=== PATIENT | female | born 1970 | race Caucasian/White ===

== ENCOUNTER 2017-03-27 04:40 | Emergency (ER) | payer MEDICARE, MEDICAID ==
[~2017-03-27] VITALS: Ht 165.1 cm; Wt 90.9 kg
[2017-03-27] MEDS ORDERED: DIAZ10 PO (04:53)
[2017-03-27] MEDS ORDERED: FLUO-191 PO (04:53)
[2017-03-27] MEDS ORDERED: ARIP15TA2 PO (04:53)
[2017-03-27 06:34] VITALS: BP 127/65
== END 2017-03-27 06:36 | disposition home or self-care (01) ==
LOC: EMS 04:43
DX: F20.9 Schizophrenia, unspecified (principal); F41.9 Anxiety disorder, unspecified; F31.9 Bipolar disorder, unspecified; F17.210 Nicotine dependence, cigarettes, uncomplicated; Z88.0 Allergy status to penicillin
CPT/HCPCS: 99284

== ENCOUNTER 2020-01-24 15:46 | Inpatient (IN) | payer MEDICARE, MEDICAID ==
[~2020-01-24] VITALS: Ht 172.7 cm; Wt 131.9 kg
[~2020-01-24 15:46] MED LIST: ARIP15TA2 PO; DIAZ10 PO; FLUO-191 PO
[2020-01-24 17:50] LABS: BASOPHILS % (AUTO) 0.6 % (0.0-2.0); EOSINOPHILS % (AUTO) 0.3 % (1.0-6.0); HEMATOCRIT 40.2 % (36-46); HEMOGLOBIN 13.2 g/dL (12.0-16.0); LYMPHOCYTES # (AUTO) 1.6 K/uL (1.0-4.8); LYMPHOCYTES % (AUTO) 21.2 % (22.0-44.0); MEAN CORPUSCULAR HEMOGLOBIN 28.8 pg (26.0-34.0); MEAN CORPUSCULAR HGB CONC 32.7 G/dL (31.0-37.0); MEAN CORPUSCULAR VOLUME 88 fL (80-100); MONOCYTES # (AUTO) 0.4 K/uL (0.1-1.0); MONOCYTES % (AUTO) 5.6 % (2.0-9.0); NEUTROPHILS # (AUTO) 5.5 K/uL (1.8-7.7); NEUTROPHILS % (AUTO) 72.3 % (40.0-70.0); PLATELET COUNT (AUTO) 285 K/uL (150-450); RED BLOOD CELL COUNT(AUTO) 4.56 MIL/uL (4.00-5.20); RED CELL DISTRIBUTION WIDTH 13.6 % (11.5-14.5)
[2020-01-24 18:10] LABS: ANION GAP 12 mmol/L (8-16); CALCIUM, TOTAL 9.9 mg/dL (8.8-10.5); CARBON DIOXIDE 25 mmol/L (22-29); CHLORIDE 110 mmol/L (98-107); CREATININE 1.51 mg/dL (0.60-1.30); GLOMERULAR FILTR. RATE CALC 37 mL/min (>60); GLUCOSE,RANDOM 145 mg/dL (70-110); POTASSIUM 3.8 mmol/L (3.5-5.1); SODIUM SERUM 147 mmol/L (136-145); UREA NITROGEN, BLOOD 17 mg/dL (7-18)
[2020-01-24 18:15] LABS: ALANINE AMINOTRANSFERASE 28 U/L (12-78); ALBUMIN 3.8 g/dL (3.4-5.0); ALKALINE PHOSPHATASE 85 U/L (46-116); ASPARTATE AMINOTRANSFERASE 22 U/L (15-37); TOTAL PROTEIN, SERUM 7.7 g/dL (6.4-8.2)
[2020-01-24] MEDS ORDERED: HydrOXYzine PAMOATE 50 MG CAPSULE PO PRN (19:00)
[2020-01-24] MEDS ORDERED: TUBERCULIN, PURIFIED PROTEIN DERIVATIVE 5 TU/0.1 ML SYRINGE ID ONE (19:00)
[2020-01-24] MEDS ORDERED: LOPERAMIDE HCL 2 MG CAPSULE PO PRN (19:00)
[2020-01-24] MEDS ORDERED: PROMETHAZINE HCL 25 MG TABLET PO PRN (19:00)
[2020-01-24] MEDS ORDERED: MAG HYDROX/AL HYDROX/SIMETH ES 30 ML SUSPENSION UDCUP PO PRN (19:00)
[2020-01-24] MEDS ORDERED: ZOLPIDEM TARTRATE 10 MG TABLET PO PRN (19:00)
[2020-01-24] MEDS ORDERED: OLANZapine 5 MG RAPDIS TABLET PO PRN (19:00)
[2020-01-24] MEDS ORDERED: ACETAMINOPHEN 325 MG TABLET PO PRN (19:00)
[2020-01-24] MEDS ORDERED: MAGNESIUM HYDROXIDE SUSPENSION 30 ML UDCUP PO PRN (19:00)
[2020-01-24] MEDS ORDERED: GuaiFENesin/D-METHORPHAN [SUGAR-FREE] 200-20MG/10 ML SYRUP UDCUP PO PRN (19:00)
[2020-01-24 19:34] LABS: COVID AG,FIA SOURCE NASOPHARYNGEAL
[2020-01-24 19:37] LABS: HCG,QUANTITATIVE 6 mIU/mL (0-6)
[2020-01-24] MEDS ORDERED: OLANZapine 5 MG RAPDIS TABLET PO SCH (21:00)
[2020-01-24] MEDS: THIAMINE 100 MG TABLET PO SCH (21:00)
[2020-01-24] MEDS: LORazepam 2 MG TABLET PO PRN (22:11)
[2020-01-25 03:27] VITALS: BP 112/85
[2020-01-25 07:31] LABS: CHOLESTEROL 138 mg/dL (131-200); FREE T4 (FREE THYROXINE) 1.56 ng/dL (0.76-1.46); HDL CHOLESTEROL 46 mg/dL (40-60); LDL CHOL (CALC.) 81 mg/dL (0-130); THYROID STIMULATING HORMONE 2.94 uIU/mL (0.36-3.74); TRIGLYCERIDES 54 mg/dL (15-150)
[2020-01-25 07:36] LABS: HEMOGLOBIN A1C 5.9 % (3.8-5.6)
[2020-01-25] MEDS: FOLIC ACID 1 MG TABLET PO SCH ×2 (09:00→09:19)
[2020-01-25] MEDS: FLUoxetine HCL 20 MG CAPSULE PO SCH ×2 (09:00→09:19)
[2020-01-25] MEDS: THIAMINE 100 MG TABLET PO SCH ×2 (09:00→16:37)
[2020-01-25] MEDS: OMEGA-3/DHA/EPA/FISH OIL 1,000 MG CAPSULE PO SCH ×2 (09:00→09:19)
[2020-01-25] MEDS: MULTIVITAMINS WITH MINERALS, THERAPEUTIC TABLET PO SCH ×2 (09:00→09:19)
[2020-01-25] MEDS ORDERED: PALIPERIDONE 1.5 MG ER TABLET PO PRN (10:30)
[2020-01-25] MEDS ORDERED: PALIPERIDONE PALMITATE 234 MG/1.5 ML SYRINGE IM ONE (10:30)
[2020-01-25 17:07] VITALS: BP 107/65
[2020-01-25] MEDS: LORazepam 2 MG TABLET PO PRN (18:40)
[2020-01-25] MEDS ORDERED: PALIPERIDONE 3 MG ER TABLET PO SCH (21:00)
[2020-01-26 08:00] VITALS: BP 109/87
[2020-01-26] MEDS: OMEGA-3/DHA/EPA/FISH OIL 1,000 MG CAPSULE PO SCH (08:17)
[2020-01-26] MEDS: FOLIC ACID 1 MG TABLET PO SCH (08:17)
[2020-01-26] MEDS: MULTIVITAMINS WITH MINERALS, THERAPEUTIC TABLET PO SCH (08:18)
[2020-01-26] MEDS: THIAMINE 100 MG TABLET PO SCH ×2 (08:18→17:00)
[2020-01-26] MEDS: FLUoxetine HCL 20 MG CAPSULE PO SCH (08:18)
[2020-01-26] MEDS: NALTREXONE HCL 50 MG TABLET PO SCH (08:18)
[2020-01-26 16:32] VITALS: BP 145/90
[2020-01-26] MEDS: LORazepam 2 MG TABLET PO PRN (22:07)
[2020-01-27 08:50] VITALS: BP 102/61
[2020-01-27] MEDS: MULTIVITAMINS WITH MINERALS, THERAPEUTIC TABLET PO SCH (09:00)
[2020-01-27] MEDS: NALTREXONE HCL 50 MG TABLET PO SCH (09:00)
[2020-01-27] MEDS: FOLIC ACID 1 MG TABLET PO SCH (09:00)
[2020-01-27] MEDS: THIAMINE 100 MG TABLET PO SCH ×2 (09:00→16:42)
[2020-01-27] MEDS: OMEGA-3/DHA/EPA/FISH OIL 1,000 MG CAPSULE PO SCH (09:00)
[2020-01-27] MEDS: FLUoxetine HCL 20 MG CAPSULE PO SCH (09:00)
[2020-01-27 16:06] VITALS: BP 124/78
[2020-01-27] MEDS: LORazepam 2 MG TABLET PO PRN (22:01)
[2020-01-28 08:00] VITALS: BP 125/80
[2020-01-28] MEDS: FLUoxetine HCL 20 MG CAPSULE PO SCH (09:00)
[2020-01-28] MEDS: FOLIC ACID 1 MG TABLET PO SCH (09:00)
[2020-01-28] MEDS: THIAMINE 100 MG TABLET PO SCH ×2 (09:00→16:11)
[2020-01-28] MEDS: OMEGA-3/DHA/EPA/FISH OIL 1,000 MG CAPSULE PO SCH (09:00)
[2020-01-28] MEDS: NALTREXONE HCL 50 MG TABLET PO SCH (09:00)
[2020-01-28] MEDS: MULTIVITAMINS WITH MINERALS, THERAPEUTIC TABLET PO SCH (09:00)
[2020-01-28 16:00] VITALS: BP 144/88
[2020-01-28] MEDS: LORazepam 2 MG TABLET PO PRN (20:21)
[2020-01-29 08:38] VITALS: BP 137/81
[2020-01-29] MEDS: FLUoxetine HCL 20 MG CAPSULE PO SCH (09:00)
[2020-01-29] MEDS ORDERED: PALIPERIDONE PALMITATE 156 MG/ML SYRINGE IM ONE (09:00)
[2020-01-29] MEDS: OMEGA-3/DHA/EPA/FISH OIL 1,000 MG CAPSULE PO SCH (09:00)
[2020-01-29] MEDS: MULTIVITAMINS WITH MINERALS, THERAPEUTIC TABLET PO SCH (09:00)
[2020-01-29] MEDS: NALTREXONE HCL 50 MG TABLET PO SCH (09:00)
[2020-01-29] MEDS: FOLIC ACID 1 MG TABLET PO SCH (09:00)
[2020-01-29] MEDS: THIAMINE 100 MG TABLET PO SCH ×2 (09:00→16:09)
[2020-01-29 10:22] LABS: ALANINE AMINOTRANSFERASE 35 U/L (12-78); ALBUMIN 3.4 g/dL (3.4-5.0); ALKALINE PHOSPHATASE 75 U/L (46-116); ANION GAP 7 mmol/L (8-16); ASPARTATE AMINOTRANSFERASE 27 U/L (15-37); BILIRUBIN,TOTAL 0.8 mg/dL (0.1-1.0); CALCIUM, TOTAL 8.7 mg/dL (8.8-10.5); CARBON DIOXIDE 29 mmol/L (22-29); CHLORIDE 103 mmol/L (98-107); CREATINE KINASE, TOTAL ONLY 99 U/L (26-192); CREATININE 0.96 mg/dL (0.60-1.30); GLOMERULAR FILTR. RATE CALC > 60 mL/min (>60); GLUCOSE,RANDOM 84 mg/dL (70-110); POTASSIUM 3.9 mmol/L (3.5-5.1); SODIUM SERUM 139 mmol/L (136-145); TOTAL PROTEIN, SERUM 6.8 g/dL (6.4-8.2); UREA NITROGEN, BLOOD 13 mg/dL (7-18)
[2020-01-29 16:16] VITALS: BP 124/86
[2020-01-29] MEDS: LORazepam 2 MG TABLET PO PRN (23:31)
[2020-01-30] MEDS: FOLIC ACID 1 MG TABLET PO SCH (07:55)
[2020-01-30] MEDS: OMEGA-3/DHA/EPA/FISH OIL 1,000 MG CAPSULE PO SCH (07:55)
[2020-01-30] MEDS: MULTIVITAMINS WITH MINERALS, THERAPEUTIC TABLET PO SCH (07:56)
[2020-01-30] MEDS: NALTREXONE HCL 50 MG TABLET PO SCH (07:56)
[2020-01-30] MEDS: THIAMINE 100 MG TABLET PO SCH ×2 (07:56→16:07)
[2020-01-30] MEDS: FLUoxetine HCL 20 MG CAPSULE PO SCH (07:56)
[2020-01-30 08:43] VITALS: BP 124/75
[2020-01-30 16:17] VITALS: BP 129/86
[2020-01-31] MEDS: LORazepam 2 MG TABLET PO PRN (01:05)
[2020-01-31 08:00] VITALS: BP 137/87
[2020-01-31] MEDS: OMEGA-3/DHA/EPA/FISH OIL 1,000 MG CAPSULE PO SCH (09:00)
[2020-01-31] MEDS: NALTREXONE HCL 50 MG TABLET PO SCH (09:00)
[2020-01-31] MEDS: FOLIC ACID 1 MG TABLET PO SCH (09:00)
[2020-01-31] MEDS: MULTIVITAMINS WITH MINERALS, THERAPEUTIC TABLET PO SCH (09:00)
[2020-01-31] MEDS: FLUoxetine HCL 20 MG CAPSULE PO SCH (09:00)
[2020-01-31] MEDS: THIAMINE 100 MG TABLET PO SCH (09:00)
[2020-01-31] MEDS ORDERED: NALT50TA PO (09:52)
[2020-01-31] MEDS ORDERED: PALI117D IM (09:52)
[2020-01-31] MEDS ORDERED: FLUO-191 PO (09:52)
[2020-01-31] MEDS ORDERED: OMEG-135 PO (09:52)
== END 2020-01-31 16:00 | disposition left against medical advice (07) | DRG 885 ==
LOC: EMS 16:12 → 3EC 18:54
PROVIDERS: ADMIT Psychiatry & Neurology Psychiatry; ATTEND Psychiatry & Neurology Psychiatry
DX: F25.9 Schizoaffective disorder, unspecified (principal); N18.9 Chronic kidney disease, unspecified; E87.0 Hyperosmolality and hypernatremia; Z68.41 Body mass index [BMI] 40.0-44.9, adult; E11.22 Type 2 diabetes mellitus with diabetic chronic kidney disease; E78.5 Hyperlipidemia, unspecified; E86.0 Dehydration; F41.9 Anxiety disorder, unspecified; F31.9 Bipolar disorder, unspecified; J44.9 Chronic obstructive pulmonary disease, unspecified; E66.9 Obesity, unspecified; Z20.828 Contact with and (suspected) exposure to other viral communicable diseases; F17.210 Nicotine dependence, cigarettes, uncomplicated; Z91.5 Personal history of self-harm; Z88.0 Allergy status to penicillin; Z79.899 Other long term (current) drug therapy
CPT/HCPCS: 80074; 83036; 83735; 84439; 84443; 86592; 87426; G0480